=== PATIENT | female | born 1955 | race Caucasian/White ===

== ENCOUNTER 2017-08-18 14:10 | Outpatient (CLI) | payer BC | END 2017-08-18 14:11 | disposition home or self-care (01) | LOC: BICMAMMO 14:10 | PROVIDERS: ATTEND Family Medicine | DX: Z12.31 Encounter for screening mammogram for malignant neoplasm of breast (principal); Z80.3 Family history of malignant neoplasm of breast | CPT/HCPCS: 77063; 77067 ==

== ENCOUNTER 2018-08-25 14:06 | Outpatient (CLI) | payer BC | END 2018-08-25 14:07 | disposition home or self-care (01) | LOC: BICMAMMO 14:06 | PROVIDERS: ATTEND Family Medicine | DX: Z12.31 Encounter for screening mammogram for malignant neoplasm of breast (principal); Z80.3 Family history of malignant neoplasm of breast | CPT/HCPCS: 77063; 77067 ==

== ENCOUNTER 2020-01-10 15:07 | Outpatient (CLI) | payer MEDICARE ==
--- NOTE | 2020-01-10 16:22 | MMO ---
Bilateral MAMMO Bilat Screen [facility]. CLINICAL HISTORY: Patient is 64 years old and is seen for screening. The patient has no family history of breast cancer. The patient has no personal history of cancer. VIEWS: The views performed were: bilateral craniocaudal with tomosynthesis and bilateral mediolateral oblique with tomosynthesis. FILMS COMPARED: The present examination has been compared to prior imaging studies performed at [facility] on 07/30/2015, 08/07/2016, 08/18/2017 and 08/25/2018. This study has been interpreted with the assistance of computer-aided detection. MAMMOGRAM FINDINGS: The breasts are heterogeneously dense, which could obscure a lesion on mammography. There are no suspicious masses, suspicious calcifications, or new areas of architectural distortion. IMPRESSION: THERE IS NO MAMMOGRAPHIC EVIDENCE OF MALIGNANCY. A ROUTINE FOLLOW-UP MAMMOGRAM IN 1 YEAR IS RECOMMENDED. THE RESULTS OF THIS EXAM WERE SENT TO THE PATIENT. ACR BI-RADS Category 1 - Negative MAMMOGRAPHY NOTE: 1. A negative mammogram report should not delay a biopsy if a dominant of clinically suspicious mass is present. 2. Approximately 10% to 15% of breast cancers are not detected by mammography. 3. Adenosis and dense breasts may obscure an underlying neoplasm. Reported by: PLACIDO HUBBARD MD Electonically Signed: [id number]
== END 2020-01-10 15:08 | disposition home or self-care (01) ==
LOC: BICMAMMO 15:07
PROVIDERS: ATTEND Family Medicine
DX: Z12.31 Encounter for screening mammogram for malignant neoplasm of breast (principal)
CPT/HCPCS: 77063; 77067

== ENCOUNTER 2020-02-20 13:19 | Outpatient (CLI) | payer MEDICARE ==
--- NOTE | 2020-02-20 13:37 | BD ---
EXAM: Bone densitometry using DEXA HISTORY: 64 yo female. Screening for postmenopausal osteoporosis FINDINGS: L1--bone mineral density 1.088 g/sq cm; T score 0.9 ; Z score 2.5 L2--bone mineral density 1.246 g/sq cm; T score 2.0 ; Z score 3.7 L3--bone mineral density 1.225 g/sq cm; T score 1.3 ; Z score 3.1 L4--bone mineral density 1.403 g/sq cm; T score 3.1 ; Z score 5.0 Total L1-L4--bone mineral density 1.258 g/sq cm; T score 1.9 ; Z score 3.7 Left femoral neck--bone mineral density0.707; T score -1.3 ; Z score 0.2 Total proximal left femur--bone mineral density 0.827; T score -0.9 ; Z score 0.3 The 10 year fracture risk for a major osteoporotic fracture is 7.8% and for a hip fracture is 0.8%. IMPRESSION: Osteopenia
== END 2020-02-20 13:20 | disposition home or self-care (01) ==
LOC: BICMAMMO 13:19
PROVIDERS: ATTEND Family Medicine
DX: Z13.820 Encounter for screening for osteoporosis (principal); N95.9 Unspecified menopausal and perimenopausal disorder; M85.852 Other specified disorders of bone density and structure, left thigh
CPT/HCPCS: 36415; 77080; 80053; 80061; 84443

== ENCOUNTER 2021-04-16 13:29 | Outpatient (CLI) | payer MEDICARE | END 2021-04-16 13:30 | disposition home or self-care (01) | LOC: BICMAMMO 13:29 | PROVIDERS: ATTEND Family Medicine | DX: Z12.31 Encounter for screening mammogram for malignant neoplasm of breast (principal) | CPT/HCPCS: 77063; 77067 ==

== ENCOUNTER 2021-10-24 13:52 | Emergency (ER) | payer MEDICARE, OTHER ==
[2021-10-24] MEDS ORDERED: Bacitracin 1 PK ONE (15:10)
== END 2021-10-24 15:22 | disposition home or self-care (01) ==
LOC: ERS 13:52
DX: S01.01XD Laceration without foreign body of scalp, subsequent encounter (principal); I10 Essential (primary) hypertension; X58.XXXD Exposure to other specified factors, subsequent encounter

== ENCOUNTER 2022-06-01 12:46 | Outpatient (CLI) | payer MEDICARE | END 2022-06-01 12:47 | disposition home or self-care (01) | LOC: BICMAMMO 12:46 | PROVIDERS: ATTEND Family Medicine | DX: Z12.31 Encounter for screening mammogram for malignant neoplasm of breast (principal); Z80.3 Family history of malignant neoplasm of breast | CPT/HCPCS: 77063; 77067 ==